=== PATIENT | male | born 1970 | race Caucasian/White ===

== ENCOUNTER 2018-01-31 12:37 | Inpatient (IN) | payer MEDICAID ==
[~2018-01-31] VITALS: Ht 172.7 cm; Wt 70.1 kg
[2018-01-31 13:17] LABS: PLATELET COUNT 258 x10^3mcL (130-400)
[2018-01-31 13:18] LABS: BASOPHIL % 0.6 % (0-2)
[2018-01-31 13:27] LABS: CREATININE SERUM 2.1 mg/dL (0.7-1.3); POTASSIUM SERUM 3.7 mmol/L (3.5-5.1)
[2018-01-31 13:40] LABS: CK-MB 2.8 ng/mL (0-3.6)
[2018-01-31 13:53] LABS: BILIRUBIN TOTAL 0.44 mg/dL (0.20-1.00)
[2018-01-31 13:57] LABS: ALBUMIN 2.6 g/dL (3.4-5.0); TOTAL PROTEIN, SERUM 5.7 g/dL (6.4-8.2)
[2018-01-31 17:48] LABS: UA SPECIFIC GRAVITY 1.015 (1.005-1.035); microscopic required? YES; urine erythrocyte TRACE (NEGATIVE)
[2018-01-31] MEDS ORDERED: NORCO1 TA2 PO (18:04)
[2018-01-31] MEDS ORDERED: LISINOPRIL10 MG PO (18:04)
[2018-01-31] MEDS ORDERED: CHLORTHALIDONE25 MG PO (18:05)
[2018-01-31] MEDS ORDERED: GLUCOTROL5 MG PO (18:05)
[2018-01-31] MEDS ORDERED: TIMOPTIC-XE OCUM5 M2 OS (18:07)
[2018-01-31] MEDS ORDERED: DORZOLAMIDE HYD10 ML OS (18:10)
[2018-01-31 18:52] VITALS: BP 159/84
[2018-01-31 19:02] VITALS: Ht 172.7 cm; Wt 70.1 kg
[2018-01-31 19:47] LABS: T3 TOTAL 0.81 ng/mL
[2018-01-31 19:50] LABS: CHOLESTEROL/HDL RATIO 5.6; MAGNESIUM 2.4 mg/dL (1.8-2.4); PHOSPHOROUS 6.4 mg/dL (2.5-4.9)
[2018-01-31 20:24] VITALS: BP 146/80
[2018-01-31 20:24] LABS: AMPHETAMINE QUAL UR NONE DETECTED (NEG <=1000)
[2018-01-31 20:36] LABS: FREE T4 1.11 ng/dL (0.76-1.46); FREE THYROXINE INDEX 2.8 ug/dL (1.4-4.5); T4(THYROXINE) 7.9 ug/dL (4.7-13.3)
[2018-02-01] VITALS (9 sets, daily range): BP systolic 146–176; BP diastolic 78–93
[2018-02-01 06:05] LABS: BASOPHIL % 0.3 % (0-2); PLATELET COUNT 204 x10^3mcL (130-400); RED CELL DISTRIBUTION WIDTH 14.4 % (11.5-14.5)
[2018-02-01 06:40] LABS: CALCIUM 7.8 mg/dL (8.5-10.1); CARBON DIOXIDE 26.4 mmol/L (21-32); CREATININE SERUM 1.9 mg/dL (0.7-1.3); POTASSIUM SERUM 3.5 mmol/L (3.5-5.1)
[2018-02-02] VITALS (10 sets, daily range): BP systolic 142–175; BP diastolic 58–99
[2018-02-02 07:02] LABS: BASOPHIL % 0.4 % (0-2); PLATELET COUNT 200 x10^3mcL (130-400); RED CELL DISTRIBUTION WIDTH 13.8 % (11.5-14.5)
[2018-02-02 08:09] LABS: CALCIUM 7.6 mg/dL (8.5-10.1); CARBON DIOXIDE 28.2 mmol/L (21-32); CREATININE SERUM 1.7 mg/dL (0.7-1.3); MAGNESIUM 2.4 mg/dL (1.8-2.4); PHOSPHOROUS 3.9 mg/dL (2.5-4.9); POTASSIUM SERUM 3.3 mmol/L (3.5-5.1)
[2018-02-02] MEDS ORDERED: METOPROLOL TART25 M1 PO (09:45)
[2018-02-02] MEDS ORDERED: LIPI10 PO (09:46)
[2018-02-02] MEDS ORDERED: ASPIR 8181 MG PO (09:47)
[2018-02-02] MEDS ORDERED: PRED FORTE1 ML OS (10:22)
[2018-02-02] MEDS ORDERED: XALATAN2.5 ML OU (10:22)
[2018-02-02] MEDS ORDERED: [UNRECOGNIZED DRUG - OTHER] OU (10:25)
[2018-02-03] VITALS (7 sets, daily range): BP systolic 147–170; BP diastolic 77–92
[2018-02-03 06:37] LABS: BASOPHIL % 0.3 % (0-2); PLATELET COUNT 211 x10^3mcL (130-400); RED CELL DISTRIBUTION WIDTH 14.1 % (11.5-14.5)
[2018-02-03 06:43] LABS: CALCIUM 7.8 mg/dL (8.5-10.1); CREATININE SERUM 1.8 mg/dL (0.7-1.3); POTASSIUM SERUM 3.2 mmol/L (3.5-5.1)
[2018-02-03] MEDS ORDERED: LISINOPRIL40 MG PO (14:06)
[2018-02-03] MEDS ORDERED: ZOLOFT50 MG PO (14:06)
[2018-02-03 14:53] LABS: IRON 60 ug/dL (65-170)
[2018-02-03 14:55] LABS: TOTAL IRON BINDING CAPACITY 180 ug/dL (250-450)
[2018-02-03 15:19] LABS: RED BLOOD CELLS 3.56 M/mm3 (4.52-5.90)
[2018-02-03] MEDS ORDERED: NATURAL IRON65 MG PO (15:24)
[2018-02-03] MEDS ORDERED: C500500 MG PO (15:25)
[2018-02-03] MEDS ORDERED: COLACE100 MG PO (15:25)
[2018-02-03] MEDS ORDERED: MECLIZINE HYD12.5 MG PO (15:39)
[2018-02-03] MEDS ORDERED: ACCU-CHEK1 EAC2 MC (16:56)
[2018-02-03] MEDS ORDERED: TEST STRIPS1 EACH MC (16:56)
[2018-02-03] MEDS ORDERED: ACCU-CHEK1 EACH MC (16:56)
== END 2018-02-03 19:04 | disposition home or self-care (01) | DRG 469 ==
LOC: ED 12:37 → DU 17:48
PROVIDERS: Emergency Medicine; Family Medicine
DX: N17.0 Acute kidney failure with tubular necrosis (principal); I50.43 Acute on chronic combined systolic (congestive) and diastolic (congestive) heart failure; G93.41 Metabolic encephalopathy; E43 Unspecified severe protein-calorie malnutrition; K56.7 Ileus, unspecified; G90.8 Other disorders of autonomic nervous system; E11.649 Type 2 diabetes mellitus with hypoglycemia without coma; E11.319 Type 2 diabetes mellitus with unspecified diabetic retinopathy without macular edema; N31.9 Neuromuscular dysfunction of bladder, unspecified; D72.829 Elevated white blood cell count, unspecified; E78.5 Hyperlipidemia, unspecified; E83.39 Other disorders of phosphorus metabolism; I11.0 Hypertensive heart disease with heart failure; I65.23 Occlusion and stenosis of bilateral carotid arteries; D50.9 Iron deficiency anemia, unspecified; E87.6 Hypokalemia; Z68.24 Body mass index [BMI] 24.0-24.9, adult; Z79.899 Other long term (current) drug therapy; Z79.84 Long term (current) use of oral hypoglycemic drugs; Z56.0 Unemployment, unspecified; Z91.14 Patient's other noncompliance with medication regimen
CPT/HCPCS: 82962; 83880; 84439; 97110-GP; 97116-GP; 97530-GP; 97535-GP; J1644; J2270; J2310; J2405; J2916; J3490; J7030; J8597; Q0092; Q9967